=== PATIENT | male | born 1965 | race Caucasian/White ===

== ENCOUNTER 2016-09-17 07:48 | Emergency (ER) | payer OTHER ==
[2016-09-17 07:49] VITALS: BMI 27.3
[2016-09-17] MEDS ORDERED: Albuterol-Ipratrop 3 mg / 0.5 (3 ml) UD INH STA ×2 (08:20)
--- NOTE | 2016-09-17 08:24 | C.PDOC ---
History Of Present Illness 51 y/o male with PMHx of asthma presents to ER with complaints of coughing and wheezing for two weeks and subjective fever which he states is resolved now. Patient denies N/V/D. No further complaints at this time. Time Seen by Provider: 09/17/16 07:55 Chief Complaint (Nursing): Cough, Cold, Congestion History Per: Patient History/Exam Limitations: no limitations Onset/Duration Of Symptoms: Days Current Symptoms Are (Timing): Still Present Associated Symptoms: Cough. denies: Nausea, Vomiting, Diarrhea Past Medical History Reviewed: Historical Data, Nursing Documentation, Vital Signs Vital Signs: Last Vital Signs Temp 98.5 F 09/17/16 09:49 Pulse 70 09/17/16 09:49 Resp 16 09/17/16 09:49 BP 125/71 09/17/16 09:49 Pulse Ox 97 09/17/16 09:49 - Medical History PMH: Anxiety, Asthma, Depression, HTN - [facility] Procedures INDIVID PSYCHOTHERAP NEC (01/21/14) INJECT/INFUSE NEC (08/02/13) OTHER GROUP THERAPY (01/21/14) Family History: States: Unknown Family Hx - Social History Hx Tobacco Use: No Hx Alcohol Use: Yes Hx Substance Use: No - Immunization History Hx Tetanus Toxoid Vaccination: No Hx Influenza Vaccination: No Hx Pneumococcal Vaccination: No Review Of Systems Except As Marked, All Systems Reviewed And Found Negative. Constitutional: Negative for: Fever, Chills, Sweats Cardiovascular: Negative for: Chest Pain Respiratory: Positive for: Cough, Wheezing (x2 weeks). Negative for: Shortness of Breath Gastrointestinal: Negative for: Nausea, Vomiting, Diarrhea Physical Exam - Physical Exam Appears: Non-toxic, No Acute Distress Skin: Normal Color, Warm Head: Atraumatic, Normacephalic Eye(s): bilateral: Normal Inspection Oral Mucosa: Moist Neck: Normal ROM Respiratory: No Rales, No Rhonchi, Wheezing (scattered wheezing bilateral) Gastrointestinal/Abdominal: Normal Exam ED Course And Treatment O2 Sat by Pulse Oximetry: 95 (Room air) Pulse Ox Interpretation: Normal Progress Note: Patient has been re-evaluated and lungs are clear, Patient is asking to be discharged. Reassessment Condition: Improved Medical Decision Making Medical Decision Making: asthma - pt well appearing, speaking full sentneces. with b/l wheezing. r/o pna. nebs steriods Disposition - Disposition Disposition: HOME/ ROUTINE Disposition Time: 08:42 Condition: STABLE Additional Instructions: please see clinic in next 1-2 days return to er with worsening symptoms or concerns. 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 MD/DO has examined the patient and agrees with the treatment plan. - Scribe Statement The provider has reviewed the documentation as recorded by the Mariana Carlos All medical record entries made by the Mariana were at my direction and personally dictated by me. I have reviewed the chart and agree that the record accurately reflects my personal performance of the history, physical exam, medical decision making, and the department course for this patient. I have also personally directed, reviewed, and agree with the discharge instructions and disposition.
--- NOTE | 2016-09-17 09:01 | RAD ---
HISTORY: cough COMPARISON: Comparison is made to 09/11/2015 TECHNIQUE: Chest PA and lateral FINDINGS: LUNGS: No significant interval change in the lungs noted since the previous exam. PLEURA: No significant pleural effusion identified. No pneumothorax apparent. CARDIOVASCULAR: Normal. OSSEOUS STRUCTURES: No significant abnormalities. VISUALIZED UPPER ABDOMEN: Normal. OTHER FINDINGS: None. IMPRESSION: No significant interval change since the previous study P
[2016-09-17 09:50] VITALS: BP 125/71; PULSE 70; RESP 16; TEMP 98.5
[2016-09-17 09:51] VITALS: O2SAT 95
== END 2016-09-17 09:49 | disposition home or self-care (01) ==
LOC: C.ER 07:48
DX: J45.909 Unspecified asthma, uncomplicated (principal)

== ENCOUNTER 2018-06-18 20:16 | Emergency (ER) | payer OTHER ==
[2018-06-18 20:16] VITALS: BMI 27.3
[2018-06-18] MEDS ORDERED: Sodium Chloride 0.9% 1,000 ML IV ONE (21:18)
[2018-06-18] MEDS ORDERED: Sodium Chloride 0.9% 1,000 ML ONE (21:28)
--- NOTE | 2018-06-18 21:33 | C.PDOC ---
History Of Present Illness 53 year old male presents to ED with complaint of lower abdominal discomfort for the past 5 years, but today the pain feels "crampy". Patient states he has a subjective fever and malaise. He has a history of asthma, depression, constipation, and hypernatremia. Patient denies constipation. Time Seen by Provider: 06/18/18 21:14 Chief Complaint (Nursing): Abdominal Pain History/Exam Limitations: no limitations Onset/Duration Of Symptoms: Hrs Current Symptoms Are (Timing): Still Present Location Of Pain/Discomfort: Diffuse (lower abdominal discomfort) Quality Of Discomfort: Cramping Associated Symptoms: Fever, Other (malaise). denies: Constipation Past Medical History Reviewed: Historical Data, Nursing Documentation, Vital Signs Vital Signs: Last Vital Signs Temp 100.2 F H 06/18/18 20:23 Pulse 97 H 06/18/18 20:23 Resp 16 06/18/18 20:23 BP 120/79 06/18/18 20:23 Pulse Ox 98 06/18/18 20:23 - Medical History PMH: Anxiety, Asthma, Depression, HTN Denies: Chronic Kidney Disease Surgical History: No Surg Hx - [facility] Procedures GROUP PSYCHOTHERAPY (09/02/17) INDIVID PSYCHOTHERAP NEC (01/21/14) INDIVIDUAL PSYCHOTHERAPY, COGNITIVE-BEHAVIORAL (09/02/17) INJECT/INFUSE NEC (08/02/13) OTHER GROUP THERAPY (01/21/14) Family History: States: Unknown Family Hx - Social History Hx Tobacco Use: No Hx Alcohol Use: Yes Hx Substance Use: No - Immunization History Hx Tetanus Toxoid Vaccination: No Hx Influenza Vaccination: No Hx Pneumococcal Vaccination: No Review Of Systems Constitutional: Positive for: Fever, Malaise. Negative for: Chills Cardiovascular: Negative for: Chest Pain, Palpitations Respiratory: Negative for: Cough, Shortness of Breath Gastrointestinal: Positive for: Abdominal Pain (lower abdominal discomfort). Negative for: Nausea, Constipation Neurological: Negative for: Weakness, Numbness, Dizziness Physical Exam - Physical Exam Appears: Well, Non-toxic, Other (slight distress) Skin: Normal Color, Warm, Dry Head: Atraumatic, Normacephalic Neck: Normal ROM, Supple Chest: Symmetrical, No Deformity Respiratory: No Accessory Muscle Use Gastrointestinal/Abdominal: Tenderness (lower abdomen bilaterally), Distention Extremity: Capillary Refill (< 2 seconds) Extremity: Bilateral: Atraumatic, Normal Color And Temperature Neurological/Psych: Oriented x3, Normal Speech, Normal Cognition ED Course And Treatment - Laboratory Results Result Diagrams: 06/18/18 21:43 06/18/18 21:43 Lab Interpretation: Normal (ua neg.) O2 Sat by Pulse Oximetry: 98 (RA) - Radiology CXR: Interpreted by Me CXR Interpretation: Yes: No Acute Disease - Other Rad abd x 2 X-Ray: Interpreted by Me (+ increased stool R colon, no obst/FA) Progress Note: Labs ordered with UA for patient. Obstructive series ordered for patient. Patient given IV fluids and Toradol IVP. Reevaluation Time: 22:11 Reassessment Condition: Improved Medical Decision Making Medical Decision Making: viral syndrome constipation no hernia low susp of AP Disposition Doctor Will See Patient In The: Office Counseled Patient/Family Regarding: Studies Performed, Diagnosis - Disposition Disposition: HOME/ ROUTINE Disposition Time: 22:11 Condition: GOOD Forms: [facility] (Bengali) - Clinical Impression Clinical Impression: Abdominal colic, Viral syndrome - Scribe Statement The provider has reviewed the documentation as recorded by the Scribe (Candida Chase) All medical record entries made by the Scribe were at my direction and personally dictated by me. I have reviewed the chart and agree that the record accurately reflects my personal performance of the history, physical exam, medical decision making, and the department course for this patient. I have also personally directed, reviewed, and agree with the discharge instructions and disposition.
[2018-06-18 21:46] LABS: BASO % 0.4 % (0.0-2.0); EOS # 0.5 K/uL (0.0-0.7); EOS % 5.9 % (0.0-4.0); HEMOGLOBIN 15.2 g/dL (12.0-18.0); LYMPH # 0.7 K/uL (1.0-4.3); LYMPH % 8.9 % (20.0-40.0); MEAN CELL VOLUME 88.4 fL (80.0-94.0); MEAN CORPUSCULAR HEMOGLOBIN 30.6 pg (27.0-31.0); MEAN CORPUSCULAR HGB CONC 34.6 g/dL (33.0-37.0); MEAN PLATELET VOLUME 8.9 fL (7.2-11.7); MONO # 0.4 K/uL (0.0-0.8); MONO % 4.9 % (0.0-10.0); NEUT # 6.7 K/uL (1.8-7.0); NEUT % 79.9 % (50.0-75.0); PLATELET COUNT 215 K/uL (130-400); RBC 4.95 Mil/uL (4.40-5.90); RED CELL DISTRIBUTION WIDTH 13.5 % (11.5-14.5)
[2018-06-18 21:51] LABS: WHITE BLOOD COUNT 8.4 K/uL (4.8-10.8)
[2018-06-18 21:56] LABS: ALB/GLOB RATIO 1.9 (1.0-2.1); ALBUMIN 4.2 g/dL (3.5-5.0); ALT/SGPT 23 U/L (21-72); AST/SGOT 27 U/L (17-59); BLOOD UREA NITROGEN 25 mg/dL (9-20); GFR NON-AFRICAN AMERICAN > 60; LIPASE 37 U/L (23-300)
[2018-06-18 22:07] LABS: SQUAMOUS EPITHIAL < 1 /hpf (0-5)
[2018-06-18 22:09] LABS: URINE BILIRUBIN NEGATIVE (NEGATIVE); URINE BLOOD NEGATIVE (NEGATIVE); URINE CLARITY CLEAR (Clear); URINE COLOR YELLOW (YELLOW); URINE GLUCOSE (UA) NEGATIVE (Normal); URINE PROTEIN NEGATIVE (NEGATIVE)
[2018-06-18 22:10] LABS: URINE LEUKOCYTE ESTERASE NEGATIVE Leu/uL (Negative)
[2018-06-18] MEDS ORDERED: Magnesium Citrate Oral SOL (300 ml) PO ONE (22:16)
[2018-06-18] MEDS ORDERED: Magnesium Citrate Oral SOL (300 ml) ONE (22:21)
[2018-06-18 22:31] VITALS: BP 112/59; PULSE 96; RESP 20; TEMP 100.1; O2SAT 97
[2018-06-18 22:45] LABS: PLATELET ESTIMATE NORMAL (NORMAL)
[2018-06-18 22:50] LABS: ANISOCYTOSIS SLIGHT; BANDS 8 % (0-2); EOSINOPHIL 11 % (0-4); LYMPHOCYTE 10 % (20-40); MONOCYTE 1 % (0-10); NEUTROPHIL 70 % (50-75); TOTAL CELLS COUNTED 100
[2018-06-18 22:51] LABS: HYPERSEGMENTATION PRESENT; LARGE PLATELETS PRESENT; POIKILOCYTOSIS SLIGHT; SPHEROCYTES SLIGHT
--- NOTE | 2018-06-19 08:38 | RAD ---
Date of service: 06/18/2018 PROCEDURE: Radiographs of the chest and abdomen (obstructive series) HISTORY: abd pain COMPARISON: No prior. TECHNIQUE: AP radiograph of the chest, with upright and supine radiographs of the abdomen. FINDINGS: CHEST: Lungs: No consolidation noted. A 4 mm nodular opacity projects over the left lung base and L5 also the anterior left 6th rib. This is a calcified granuloma per the CT chest without contrast study 09/21/2014. Appears unchanged. Cardiovascular: Normal size heart. No pulmonary vascular congestion. No aortic atherosclerotic calcification present Pleura: No pleural fluid. No pneumothorax. Other findings: None. ABDOMEN AND PELVIS: Bowel: Moderate stool retention present pattern. No evidence of mechanical obstruction. Free air: None. Bones: Minimal bilateral inferior SI joint arthrosis. Bilateral mild hip arthrosis Other findings: None. IMPRESSION: No pulmonary infiltrate. Incidentally noted is a stable (since prior CT chest study from 09/21/2014) calcified granuloma at the left lung base Stool retention. No bowel obstruction appreciated. Other findings as above.
== END 2018-06-18 22:30 | disposition home or self-care (01) ==
LOC: C.ER 20:16
DX: R10.84 Generalized abdominal pain (principal); B34.9 Viral infection, unspecified
CPT/HCPCS: 74022; 80053; 81001; 83690; 85025; 96361; 96374; 99285; J1885; J7030